=== PATIENT | female | born 1965 | race Caucasian/White ===

== ENCOUNTER 2017-02-19 08:50 | Emergency (ER) | payer BC, OTHER ==
[2017-02-19 09:06] VITALS: BP 120/64
--- NOTE | 2017-02-19 16:11 | UC ---
Lashonda Renteria Salem, scribed for Flaquita Doan MD on 02/19/17 at 1005 . General HPI - HPI Summary HPI Summary: Patient is a 51 y/o female who presents to the with general malaise since 4 days ago. She reports a low grade fever (close to 100F), chills, diarrhea (once a day), fatigue, headache, congestion, and productive cough that has been worsening, but denies a sore throat. Pt states she went to [place] in October 2016 and had a similar spell of sx in November 2016 and December 2016. She also reports taking Advil at 0600. Pt states that she will be leaving the country on February 26, 2017. - History of Current Complaint Chief Complaint: UCGeneralIllness Stated Complaint: FEVER,CHILLS,DIARRHEA Time Seen by Provider: 02/19/17 09:42 Hx Obtained From: Patient Onset/Duration: Gradual Onset, Lasting Days, Still Present Timing: Constant Onset Severity: Moderate Current Severity: Moderate Associated Signs & Symptoms: Positive: Cough - Productive., Diarrhea, Fever - Low grade., Headache, Other - Fatigue. Congestion. Chills. Related Hx: Recent Illness - Allergy/Home Medications Allergies/Adverse Reactions: Allergies Allergy/AdvReac Type Severity Reaction Status Date / Time Oxycodone [From Percocet] AdvReac Vomiting Verified 02/19/17 09:02 PMH/Surg Hx/FS Hx/Imm Hx Previously Healthy: Yes Cancer History Of: Denies: Breast Cancer - Surgical History Surgical History: Yes Surgery Procedure, Year, and Place: wisdom teeth - Family History Known Family History: Positive: Other - [place] aunt. Rheumatoid Arthritis - Social History Occupation: Employed Full-time Alcohol Use: Occasionally Substance Use Type: None Smoking Status (MU): Never Smoked Tobacco - Immunization History Most Recent Influenza Vaccination: 2016 Most Recent Tetanus Shot: UTD Review of Systems Constitutional: Fever - Low grade., Chills, Fatigue ENT: Negative Respiratory: Cough - Productive., Other - Congestion. Gastrointestinal: Diarrhea Neurological: Headache All Other Systems Reviewed And Are Negative: Yes Physical Exam Triage Information Reviewed: Yes Appearance: No Pain Distress, Well-Nourished, Ill-Appearing Vital Signs: Initial Vital Signs Temp 98.6 F 02/19/17 09:03 Pulse 60 02/19/17 09:03 Resp 18 03/24/17 09:03 BP 120/64 02/19/17 09:03 Pulse Ox 100 02/19/17 09:03 Vital Signs Reviewed: Yes Eyes: Positive: Conjunctiva Clear ENT: Positive: Pharynx normal, TMs normal. Negative: Muffled/hoarse voice Neck: Positive: Supple, Nontender, No Lymphadenopathy Respiratory: Positive: Lungs clear, Normal breath sounds, No respiratory distress. Negative: Wheezing Cardiovascular: Positive: RRR, No Murmur, Pulses Normal, Brisk Capillary Refill Abdomen Description: Positive: Nontender, Soft. Negative: Splenomegaly Bowel Sounds: Positive: Present Musculoskeletal: Positive: Strength Intact, ROM Intact Neurological: Positive: Alert, Muscle Tone Normal Psychological Exam: Normal Skin Exam: Normal Diagnostics - Laboratory Diagnostic Studies Completed/Ordered: Influenza A (rapid): negative. Influenza B (rapid): positive Re-Evaluation - Re-Evaluation First Eval Re-Evaluation Time: 11:04 Comment: Informed pt of Influenza B results and discussed plan. Course/Dx - Course Course Of Treatment: influenza B positive - Differential Dx - Multi-Symptom Differential Diagnoses: Other - traveler's diarrhea, infectious colitis, influenza, viral syndrome. Provider Diagnoses: Influenza B. Diarrhea Discharge - Discharge Plan Condition: Stable Disposition: HOME Prescriptions: Azithromycin [Azithromycin 500 MG TAB] 500 mg PO DAILY #5 tab Ondansetron [Zofran 8 MG Odt] 8 mg PO Q8H #30 tab Oseltamivir CAP* [Tamiflu CAP*] 75 mg PO BID #10 cap Patient Education Materials: Traveler's Diarrhea (ED), Influenza (ED) Forms: *Work Release Referrals: Winnie Dalton MD [Primary Care Provider] - Additional Instructions: We have ordered stool cultures for you. We will notify you if there is any additional treatment needed based on these results. The documentation as recorded by the Lashonda garcia Salem accurately reflects the service I personally performed and the decisions made by , Flaquita Doan MD.
== END 2017-02-19 11:42 | disposition home or self-care (01) ==
LOC: UCEAST 08:50
DX: J11.1 Influenza due to unidentified influenza virus with other respiratory manifestations (principal); R19.7 Diarrhea, unspecified
CPT/HCPCS: 81003; 82272; 87045; 87046; 87328; 87329; 87425; 87502; 87899; 99212; G0463